=== PATIENT | female | born 1990 | race Caucasian/White ===

== ENCOUNTER 2024-09-28 16:53 | Emergency (ER) | payer OTHER ==
[~2024-09-28] VITALS: Ht 162.6 cm; Wt 72.6 kg
[2024-09-28 17:09] LABS: *BILIRUBIN,URIN NEGATIVE (NEGATIVE); *BLOOD, URINE NEGATIVE (NEGATIVE); *CLARITY,URINE CLEAR (CLEAR); *COLOR,URINE YELLOW (YELLOW); *KETONES,URINE NEGATIVE (NEGATIVE); *PROTEIN,URINE NEGATIVE (NEGATIVE); *UROBILINOGEN,URINE 0.2 E.U./dl (NORMAL); LEUKOCYTE ESTERASE ,URINE NEGATIVE (NEGATIVE); NITRITE, URINE NEGATIVE (NEGATIVE); PH,URINE 7.5 (5.0-8.0); UGLUCOSE NEGATIVE (NEGATIVE)
[2024-09-28] MEDS ORDERED: [UNRECOGNIZED DRUG - CODE] SQ (17:11)
[2024-09-28] MEDS ORDERED: [UNRECOGNIZED DRUG - CODE] SQ (17:11)
[2024-09-28] MEDS ORDERED: [UNRECOGNIZED DRUG - CODE] SUBCUT (17:11)
[2024-09-28] MEDS ORDERED: [UNRECOGNIZED DRUG - CODE] SQ (17:11)
[2024-09-28 17:16] LABS: *URINE HCG, QUAL NEGATIVE (NEGATIVE)
[2024-09-28 17:27] LABS: BASOPHILS % (AUTO) 0.1 % (0.0-2.0); EOSINOPHILS # (AUTO) 0.1 K/uL (0.0-0.7); EOSINOPHILS % (AUTO) 0.7 % (0.0-7.0); HEMATOCRIT 38.7 % (31.2-41.9); HEMOGLOBIN 13.3 g/dL (10.9-14.3); LYMPHOCYTES # (AUTO) 1.9 K/uL (0.8-4.8); MEAN CORPUSCULAR HEMOGLOBIN 29.1 uug (24.7-32.8); MEAN CORPUSCULAR HGB CONC 34 g/dL (32.3-35.6); MEAN CORPUSCULAR VOLUME 84.5 fL (75.5-95.3); MONOCYTES # (AUTO) 0.3 K/uL (0.1-1.30); MONOCYTES % (AUTO) 3.4 % (0.0-11.0); NEUTROPHILS % (AUTO) 72.8 % (38.5-71.5); PLATELET COUNT (AUTO) 317 K/uL (179-408); RED BLOOD CELL COUNT(AUTO) 4.58 MIL/uL (3.63-4.92); WHITE BLOOD COUNT (AUTO) 8.3 K/uL (3.8-11.8)
[2024-09-28] MEDS ORDERED: MORPHINE SULFATE 4 MG/1 ML DISP.SYRIN ONE (17:35)
[2024-09-28] MEDS ORDERED: ONDANSETRON 4 MG/2 ML VIAL ONE (17:35)
[2024-09-28] MEDS: ONDANSETRON 4 MG/2 ML VIAL IV ONE (17:42)
[2024-09-28] MEDS: MORPHINE SULFATE 4 MG/1 ML DISP.SYRIN IV ONE (17:42)
[2024-09-28 17:43] LABS: ALANINE AMINOTRANSFERASE 36 U/L (14-59); ALBUMIN 3.8 g/dL (3.4-5.0); ALKALINE PHOSPHATASE 64 U/L (50-136); ASPARTATE AMINOTRANSFERASE 16 U/L (15-37); BILIRUBIN,DIRECT < 0.1 mg/dL (0.0-0.2); BILIRUBIN,TOTAL 0.2 mg/dL (0.2-1.0); CALCIUM 9.1 mg/dL (8.5-10.1); CARBON DIOXIDE 27 mmol/L (21-32); CHLORIDE 105 mmol/L (98-107); CREATININE 0.8 mg/dL (0.6-1.3); GLUCOSE 100 mg/dL (74-106); POTASSIUM 3.6 mmol/L (3.5-5.1); SODIUM SERUM 142 mmol/L (136-145); TOTAL PROTEIN, SERUM 7.4 g/dL (6.4-8.2); UREA NITROGEN, BLOOD 6 mg/dL (7-18)
[2024-09-28] MEDS: IV NS 1000 ML 1,000 ML IV ONE (18:06)
[2024-09-28] MEDS ORDERED: OXYC-128 PO (18:36)
[2024-09-28] MEDS ORDERED: ONDA4TAB5 PO (18:36)
[2024-09-28 21:10] VITALS: BP 111/61; O2SAT 98
== END 2024-09-28 21:11 | disposition home or self-care (01) ==
LOC: ER 17:12
DX: R10.32 Left lower quadrant pain (principal); R10.2 Pelvic and perineal pain; R11.2 Nausea with vomiting, unspecified
CPT/HCPCS: 99285; 74176; 96374; 76856; 96361; 96375; 80076; 80048; 81003; 84703; 85025; 36415; J2405; J2270; J7040; A4606; A4663